=== PATIENT | female | born 1990 ===

== ENCOUNTER 2023-06-27 22:17 | Emergency (ER) | payer SELFPAY ==
[~2023-06-27] VITALS: Ht 157.5 cm; Wt 75.9 kg
[2023-06-27 22:18] VITALS: BP 131/70; TEMP 97.6; O2SAT 99
== END 2023-06-28 | disposition left against medical advice (07) ==
LOC: M ED 22:17
DX: Z53.21 Procedure and treatment not carried out due to patient leaving prior to being seen by health care provider (principal)